=== PATIENT | male | born 2000 | race Two or more races ===

== ENCOUNTER 2024-12-09 20:42 | Emergency (ER) | payer MEDICAID, OTHER ==
[~2024-12-09] VITALS: Ht 180.3 cm; Wt 68.2 kg
[2024-12-09 23:09] VITALS: BP 118/68; PULSE 75; RESP 18; TEMP 98.1; O2SAT 98
[2024-12-09] MEDS ORDERED: IBUP-1456 PO (23:29)
[2024-12-09] MEDS ORDERED: CEPH500C PO (23:29)
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
--- NOTE | 2024-12-09 23:50 | DVH ---
XY L 2ND TOE XRAY, December 09, 2024 INDICATION: LEFT 2ND TOE PAIN TECHNICAL DATA: Frontal view of the foot and lateral and oblique views of the toe were obtained. COMPARISON: None FINDINGS: No fracture is identified. Joint spaces are maintained. Alignment is anatomic. There is swelling invo lving the 2nd digit. IMPRESSION: 1. Apparent swelling involving the 2nd no fractures no degenerative changes
== END 2024-12-10 00:05 | disposition home or self-care (01) ==
LOC: ER 20:42
DX: S90.122A Contusion of left lesser toe(s) without damage to nail, initial encounter (principal); Z79.899 Other long term (current) drug therapy; X58.XXXA Exposure to other specified factors, initial encounter; Y93.89 Activity, other specified; Y92.89 Other specified places as the place of occurrence of the external cause; Y99.0 Civilian activity done for income or pay
CPT/HCPCS: 73660; 99283; J7030

== ENCOUNTER 2025-07-08 11:17 | Emergency (ER) | payer MEDICAID, OTHER ==
[~2025-07-08] VITALS: Ht 188 cm; Wt 76.4 kg
[~2025-07-08 11:17] MED LIST: CEPH500C PO; IBUP-1456 PO
[2025-07-08 11:19] VITALS: BP 124/83; PULSE 83; RESP 15; TEMP 98.2; O2SAT 99
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
== END 2025-07-08 12:19 | disposition home or self-care (01) ==
LOC: ER 11:17
DX: S00.81XA Abrasion of other part of head, initial encounter (principal); X58.XXXA Exposure to other specified factors, initial encounter; Y93.89 Activity, other specified; Y92.89 Other specified places as the place of occurrence of the external cause; Y99.8 Other external cause status
CPT/HCPCS: 99282; J7030